=== PATIENT | female | born 1940 | race Caucasian/White ===

== ENCOUNTER 2018-03-08 03:52 | Inpatient (IN) | payer OTHER, MEDICARE ==
[~2018-03-08] VITALS: Ht 154.9 cm; Wt 83.6 kg
[~2018-03-08 03:52] MED LIST: CALCIUM 500 +1 EAC5 PO; CO Q-10400 MG PO; FEMARA2.5 M1 PO; GLUCOSA-CHOND-1 EACH PO; METAMUCIL PACK3.4 GM PO; SYNTHROID25 MCG PO; TYLENOL WITH C1 EACH PO; ZOCOR20 M1 PO
[2018-03-08 14:20] VITALS: BP 120/68
[2018-03-08 14:50] VITALS: BP 104/52
--- NOTE | 2018-03-08 15:18 | PN- Orthopedic ---
Subjective Subjective: POST-OP NOTE: No complaints. Reports pain control significantly better after block done in pacu. Currently tolerating clears. No nausea. Eager to try food. Not yet out of bed. No dizziness. No shortness of breath. No chest pains. Objective Vital Signs and I&Os Vital Signs Date Time Temp Pulse Resp B/P B/P Pulse O2 O2 Flow FiO2 Mean Ox Delivery Rate 03/08 1420 99 Nasal 2.0L Cannula 03/08 1420 97.9 64 20 120/68 99 Nasal 2.0L Cannula Intake & Output 03/08 1600 03/08 0800 03/08 0000 03/07 1600 03/07 0800 03/07 0000 Intake Total Output Total Balance Patient 184 lb Weight Weight Bed scale Measurement Method Physical Exam: General - alert & oriented x 3. comfortable. no acute distress. Lungs - clear bilaterally. no w/r/r. Cardiac - s1s2 Abdomen - soft. nontender. - east draining clear, yellow urine. Extremities - warm bilaterally. no c/c/e. calves soft and nontender b/l. right leg dressing c/d/i. ice pack in place over right knee. on-q in place. nvi. athrombics active b/l. Current Medications: Current Medications Sig/Courtney Start time Last Medication Dose Route Stop Time Status Admin Acetaminophen 650 MG ONCE 03/08 DC PO 03/08 2359 Al Hydroxide/Mg 30 ML Q6P PRN 03/08 144 AC Hydroxide PO Apixaban 2.5 MG BID 03/09 09 AC PO Atorvastatin Calcium 10 MG 1700 03/08 1700 AC PO Celecoxib 400 MG DAILY 03/09 09 AC PO Celecoxib 400 MG ONCE 03/08 DC PO 03/08 235 Dexamethasone 10 MG ONCE 03/08 DC IV 03/08 235 Dextrose/Sodium 1,000 ML Q13H 03/08 1445 AC Chloride IV Docusate Sodium 100 MG DAILY NEEDED PRN 03/08 1445 AC PO Gabapentin 300 MG ONCE 03/08 DC PO 03/08 235 Letrozole 2.5 MG DAILY 03/09 09 AC PO Levothyroxine Sodium 0.025 MG DAILY AC 03/09 0700 AC PO Morphine Sulfate 2 MG Q3P PRN 03/08 1445 AC IV Morphine Sulfate 4 MG Q3P PRN 03/08 1445 AC IV Ondansetron HCl 4 MG Q6P PRN 03/08 1445 AC IV Oxycodone HCl 10 MG ONCE 03/08 0000 DC PO 03/08 2359 Oxycodone/ 1 TAB Q4P PRN 03/08 1445 AC Acetaminophen PO Oxycodone/ 2 TAB Q4P PRN 03/08 1445 AC Acetaminophen PO Polyethylene Glycol 17 GM DAILY NEEDED PRN 03/08 1445 AC PO Ropivacaine 500 ML ONCE ONE 03/08 1015 DC ON-Q Ball 1 BAG INJ 03/08 1016 Scopolamine HBr 1 PAT ONCE 03/08 0000 DC TOP 03/08 2359 Senna/Docusate Sodium 2 TAB AT BEDTIME NEED.. 03/08 1445 AC PO Vancomycin HCl 1,000 MG ONCE ONE 03/08 2200 AC Dextrose/Water 250 ML IV 03/08 2259 Vancomycin HCl 1,000 MG ONCE 03/08 0000 DC Dextrose/Water 250 ML IV 03/08 2359 Assessment/Plan Assessment/Plan This 77 year old female with hx breast cancer, hypothryoidism, hyperlipidemia, constipation, is POD#0 s/p right total knee replacement for primary osteoarthritis advance diet as tolerated pain control as ordered colace bid / miralax prn eliquis bid - dvt ppx celebrex jean-op vanco PT eval d/c east in am f/u am labs home meds ordered dressing change and removal of On-q POD#2 STR planning, bishop macdonald is her goal will d/w Core Measures Venous Thromboembolism VTE Risk Factors Surgery No Mechanical VTE Prophylaxis d/t N/A MechProphylax Ordered No VTE Pharm Prophylaxis d/t NA PharmProphylax ordered
[2018-03-08 16:20] VITALS: BP 115/78
[2018-03-08 18:30] VITALS: BP 110/68
--- NOTE | 2018-03-08 19:16 | Admission Core Measures ---
Acute Coronary Syndrome (CM) ACS Core Measures Acute Coronary Syndrome Diagnosis No Congestive Heart Failure (NEW) CHF Core Measures Congestive Heart Failure Diagnosis No Cerebrovascular Accident (NEW) CVA Core Measures CVA/TIA Diagnosis No Venous Thromboembolism VTE Core Harriett (View Protocol) VTE Risk Factors Surgery No Mechanical VTE Prophylaxis d/t N/A MechProphylax Ordered No VTE Pharm Prophylaxis d/t NA PharmProphylax ordered Problem List As ranked by this Provider includes Assessment & Plan 1. Primary osteoarthritis of right knee HOME MEDS Home Med List Calcium Carbonate/Vitamin D3 (Calcium 500 + D Tablet) 500 MG-400 TABLET 1 TAB PO BID SUPPLEMENT (Reported) Letrozole (Femara) 2.5 MG TABLET 1 TAB PO DAILY BREAST CANCER (Reported) Levothyroxine Sodium (Synthroid) 25 MCG TABLET 1 TAB PO DAILY HORMONE ( Reported)
--- NOTE | 2018-03-08 19:17 | Patient Discharge Instructions ---
Discharge Instructions General Discharge Information You were seen/treated for: Primary osteoarthritis right knee You had these procedures: Right total knee replacement Watch for these problems: Increasing pain despite the use of pain medication Increasing redness, warmth or swelling Drainage of any type from incision Inability to bear weight on operative leg Persistent nausea and vomiting Fever greater than 101.5 degrees Other wound care: Please keep wound clean and dry. No ointments or lotions of any type on or near incision. Your dressing will be changed by your nurse on the second day after your surgery. Daily dry dressing changes are recommended each day thereafter. You may shower 48hr after surgery. Do not soak your wound- no tub baths or swimming. Diet Continue normal diet: Yes Activity Activity Limited to: Weight bear as tolerated Additional ACTIVITY Info: Use assistive devices as needed Acute Coronary Syndrome Inclusion Criteria At DC or during hospital stay patient has or had the following: ACS DIAGNOSIS No Discharge Core Measures Meds if any: Prescribed or Continued at Discharge Meds if any: NOT Prescribed or Continued at Discharge Congestive Heart Failure Inclusion Criteria At DC or during hospital stay patient has or had the following: CHF DIAGNOSIS No Discharge Core Measures Meds if any: Prescribed or Continued at Discharge Meds if any: NOT Prescribed or Continued at Discharge Cerebrovascular accident Inclusion Criteria At DC or during hospital stay patient has or had the following: CVA/TIA Diagnosis No Discharge Core Measures Meds if any: Prescribed or Continued at Discharge Meds if any: NOT Prescribed or Continued at Discharge Venous thromboembolism Inclusion Criteria VTE Diagnosis No VTE Type NONE VTE Confirmed by (Test) NONE Discharge Core Measures - Per Current guidelines, there needs to be overlap - treatment for the first 5 days of Warfarin therapy. - If discharged on Warfarin prior to 5 days of - overlap therapy, the patient will need to be - assessed for post discharge needs including - *Post discharge parental anticoagulation - *Warfarin and/or parental anticoagulation education - *Follow up date to check INR post discharge At least 5 days overlap therapy as Inpatient No Meds if any: Prescribed or Continued at Discharge Note: Overlap Therapy is Warfarin and Anticoagulant Meds if any: NOT Prescribed or Continued at Discharge
--- NOTE | 2018-03-08 19:20 | Surgical Discharge Summary ---
Visit Information Visit Dates Admission Date: 03/08/18 Discharge Date: 03/11/18 History of Present Illness Chief Complaint: Right knee pain related to osteoarthritis Medical History Blood Transfusion Hx: No Cardiovascular: hyperlipidemia Endocrine: hypothyroidism Cancer(s): breast cancer History of MRSA: No History of VRE: No History of CDIFF: No Isolation History: Standard Surgical History Pertinent Surgical History: sp lumpectomy Psychosocial History Where Do You Live? Home Who Do You Live With? Patient/Self Services at Home: None What is Your Primary Language? Romansh Review of Systems: See H&P Hospital Course Course Attending Physician: Krystle CONNOR,[facility] Primary Care Physician: Blaine CONNOR,[facility] Hospital Course: Patient was admitted to the hospital for an elective total joint replacement. Procedure was tolerated well and patient was transferred to a general surgical floor. Diet was advanced and tolerated. Physical therapy performed evaluation and treatment. At time of hospital discharge, vital signs were stable, neurovascular status was intact, and pain was controlled with the use of oral pain medications. Pt DCed to STR with instructions to FU with Dr Dalton in 2 weeks. Allergies: Coded Allergies: adhesive (BLISTER, 03/08/18) adhesive that contains latex Disposition Summary Disposition Principal Diagnosis: Primary osteoarthritis right knee Additional Diagnosis: Same, status post right total knee replacement Discharge Disposition: SNF Discharge Instructions General Discharge Information Code Status: Full Code Patient's Diet: Regular healthy diet Patient's Activity: WBAT Follow-Up Instructions/Appts: Follow-up in MDs office 2 weeks from surgery. Call to confirm/schedule appointment Medications at Discharge Discharge Medications: Continue taking these medications: Calcium Carbonate/Vitamin D3 (Calcium 500 + D Tablet) 500 MG-400 TABLET 1 Tablet ORAL TWICE DAILY Gluc/Pop-MSM#1/Vit C/Dharmesh/Bor (Tkjnmxr-Dzweo-ZIL Complex Cplt) 375-500 MG TABLET Ubidecarenone (Co Q-10) 400 MG CAPSULE Letrozole (Femara) 2.5 MG TABLET 1 Tablet ORAL DAILY Levothyroxine Sodium (Synthroid) 25 MCG TABLET 1 Tablet ORAL DAILY Psyllium Hydrophylic Muciloid (Metamucil Packet) 3.4 GRAM POWD.PACK Simvastatin (Zocor*) 20 MG TABLET Start taking the following new medications: Oxycodone HCl/Acetaminophen (Percocet 5-325 MG Tablet) 5 MG-325 MG TABLET 1-2 Tablet ORAL EVERY 4-6 HOURS as needed for postop pain Qty = 30 No Refills Celecoxib (Celebrex) 200 MG CAPSULE 2 Capsule ORAL DAILY Qty = 60 No Refills Apixaban (Eliquis) 2.5 MG TABLET 1 Tablet ORAL TWICE DAILY Qty = 84 No Refills
[2018-03-08 20:05] VITALS: BP 117/68
[2018-03-09 00:15] VITALS: BP 101/65
[2018-03-09 04:10] VITALS: BP 96/60
[2018-03-09 08:02] VITALS: BP 118/72
--- NOTE | 2018-03-09 08:35 | PN- Orthopedic ---
See Addendum Subjective Subjective: Reports did not sleep well. She may be interested in trying melatonin or benadryl tonight if offered. Reports pain relatively controlled. Not yet up with PT today. She denies dizziness. No shortness of breath. No chest pains. Tolerating diet. Anticipates discharge to rehab on . Objective Vital Signs and I&Os Vital Signs Date Time Temp Pulse Resp B/P B/P Pulse O2 O2 Flow FiO2 Mean Ox Delivery Rate 03/09 08 97.7 57 20 118/72 94 Room Air 03/09 0410 97.5 65 18 96/60 94 Room Air 03/09 0015 97.8 67 18 101/65 95 Room Air 03/08 2005 97.8 63 18 117/68 99 Room Air 03/08 1830 97.4 64 18 110/68 98 Room Air 03/08 1620 97.4 54 18 115/78 91 Room Air 03/08 1420 99 Nasal 2.0L Cannula 03/08 1420 97.9 64 20 120/68 99 Nasal 2.0L Cannula Intake & Output 03/09 1600 03/09 0800 03/09 0000 03/08 1600 03/08 0800 03/08 0000 Intake Total 1080 1125 Output Total 1600 1500 Balance -520 -375 Intake, IV 600 Intake, Oral 480 1125 Output, Urine 1600 1500 Patient 184 lb Weight Weight Bed scale Measurement Method Physical Exam: General - alert & oriented x 3. comfortable. no acute distress. Lungs - clear bilaterally. no w/r/r. Cardiac - s1s2. Abdomen - soft. nontender. - east draining clear, yellow urine. right leg dressing c/d/i. on q in place. athrombics active b/l. no calf tenderness bilaterally. nvi. Current Medications: Current Medications Sig/Courtney Start time Last Medication Dose Route Stop Time Status Admin Acetaminophen 650 MG ONCE 03/08 0000 DC PO 03/08 235 Al Hydroxide/Mg 30 ML Q6P PRN 03/08 1445 AC Hydroxide PO Apixaban 2.5 MG BID 03/09 0900 AC PO Atorvastatin Calcium 10 MG 1700 03/08 1700 AC 03/08 PO 1635 Celecoxib 400 MG DAILY 03/09 0900 AC PO Celecoxib 400 MG ONCE 03/08 0000 DC PO 03/08 235 Dexamethasone 10 MG ONCE 03/08 0000 DC IV 03/08 2359 Dextrose/Sodium 1,000 ML Q13H 03/08 1445 AC 03/09 Chloride IV 0201 Docusate Sodium 100 MG BID 03/08 2100 AC 03/08 PO 2157 Docusate Sodium 100 MG DAILY NEEDED PRN 03/08 1445 DC PO Fentanyl Citrate 250 MCG .STK-MED ONE 03/08 1057 DC IM 03/08 1058 Fentanyl Citrate 100 MCG .STK-MED ONE 03/08 0929 DC IM 03/08 0930 Gabapentin 300 MG ONCE 03/08 0000 DC PO 03/08 2359 Letrozole 2.5 MG DAILY 03/09 0900 AC PO Levothyroxine Sodium 0.025 MG DAILY AC 03/09 0700 AC 03/09 PO 0519 Midazolam HCl 4 MG .STK-MED ONE 03/08 0929 DC IM 03/08 0930 Morphine Sulfate 2 MG Q3P PRN 03/08 1445 AC IV Morphine Sulfate 4 MG Q3P PRN 03/08 1445 AC IV Morphine Sulfate 10 MG .STK-MED ONE 03/08 0930 DC IV 03/08 0931 Ondansetron HCl 4 MG Q6P PRN 03/08 1445 AC IV Oxycodone HCl 10 MG ONCE 03/08 0000 DC PO 03/08 2359 Oxycodone/ 1 TAB Q4P PRN 03/08 1445 AC Acetaminophen PO Oxycodone/ 2 TAB Q4P PRN 03/08 1445 AC Acetaminophen PO Polyethylene Glycol 17 GM DAILY NEEDED PRN 03/08 1445 AC PO Ropivacaine 500 ML ONCE ONE 03/08 1015 DC ON-Q Ball 1 BAG INJ 03/08 1016 Scopolamine HBr 1 PAT ONCE 03/08 0000 DC TOP 03/08 2359 Senna/Docusate Sodium 2 TAB AT BEDTIME NEED.. 03/08 1445 AC PO Tranexamic Acid 2,000 MG .STK-MED ONE 03/08 0929 DC IV 03/08 0930 Vancomycin HCl 1,000 MG ONCE ONE 03/08 2200 DC 03/08 Dextrose/Water 250 ML IV 03/08 2259 2157 Vancomycin HCl 1,000 MG ONCE 03/08 0000 DC Dextrose/Water 250 ML IV 03/08 2359 Results Last 48 Hours of Labs: Laboratory Tests 03/09 0750 Chemistry Sodium Pending Potassium Pending Chloride Pending Carbon Dioxide Pending Anion Gap Pending BUN Pending Creatinine Pending BUN/Creatinine Ratio Pending Hematology CBC w Diff Pending WBC Pending RBC Pending Hgb Pending Hct Pending MCV Pending MCH Pending MCHC Pending RDW Pending Plt Count Pending MPV Pending Assessment/Plan Assessment/Plan This 77 year old female with hx breast cancer, hypothryoidism, hyperlipidemia, constipation, is POD#1 s/p right total knee replacement for primary osteoarthritis tolerating diet. d/c iv fluids pain controlled colace bid / miralax prn eliquis bid - dvt ppx celebrex jean-op vanco complete PT eval d/c east f/u labs home meds ordered dressing change and removal of On-q POD#2 STR planning, [facility] macd[facility] is her goal will d/w Core Measures Venous Thromboembolism VTE Risk Factors Surgery No Mechanical VTE Prophylaxis d/t N/A MechProphylax Ordered No VTE Pharm Prophylaxis d/t NA PharmProphylax ordered
[2018-03-09 09:04] LABS: ABSOLUTE BASOPHIL COUNT 0 /CUMM (0.0-0.2); ABSOLUTE EOSINOPHIL COUNT 0 /CUMM (0.0-0.7); ABSOLUTE MONOCYTE COUNT 0.9 /CUMM (0.10-0.60); BASOPHIL % 0 % (0.0-2.0); EOSINOPHIL % 0 % (0-5); HEMATOCRIT 31.3 % (37-47); MEAN CORPUSCULAR HGB 30.1 PG (27.0-31.0); MEAN CORPUSCULAR HGB CONC 33.7 G/DL (33.0-37.0); MEAN CORPUSCULAR VOLUME 89.5 FL (81.0-99.0); MEAN PLATELET VOLUME 9.2 FL (7.4-10.4); PLATELET COUNT 161 /CUMM (130-400)
[2018-03-09 12:26] VITALS: BP 110/70
[2018-03-09 16:10] VITALS: BP 108/64
--- NOTE | 2018-03-09 19:31 | Operative Report ---
Operative/Inv Procedure Report Surgery Date: 03/08/18 Name of Procedure: Right total knee arthroplasty Pre-Operative Diagnosis: Primary right knee osteoarthritis Post-Operative Diagnosis: Same Estimated Blood Loss: less than 50ml Surgeon/Applications Trainer: Krystle CONNOR,Roman Wesley Anesthesia: general endotracheal tube Implants: [place] triathlon total knee system-size 3 femur, size 3 tibia, 9 mm cruciate retaining polyethylene, 27 patella Drains: None Specimens: Femoral, tibial, patellar bone, meniscal remnants Microbiology: Urine Tourniquet: 56 minutes Complications: None Condition: Stable Operative Indication: Patient is a 77-year-old woman who has a long history of bilateral knee pain. Symptoms are aggravated with activity and activity of daily living compromised by her right knee pain. She underwent previous treatment for knee with only short-term relief. She was evaluated in our office and wanted to proceed with total knee arthroplasty. Risks, benefits and expectations were discussed which included but were not limited to persistent knee pain, need for subsequent surgery, infection, stiffness, injury to blood vessel or nerve, DVT anesthesia risks. She wished to proceed with total knee arthroplasty. Preoperatively patient had a 15 flexion contracture and this would need to be addressed during the case Operative/Procedure Note Note: Patient was brought to the operating room and transferred to the operating table. Once under appropriate anesthesia the right lower extremity was prepped and draped in standard fashion. There was an attempt to have a spinal anesthesia done but it was not successful and therefore patient went under general anesthesia. Right lower extremity was elevated exsanguinated and tourniquet was inflated at 300 mL was a pressure. A standard anterior shins was made for anticipated medial parapatellar approach to the knee. The incision was taken down sharply to the underlying retinaculum. A medial retinacular approach was minimal extension into the quadriceps tendon was done. Moderate knee effusion was evacuated. Remnants of the anterior and medial and lateral meniscal tissues were excised. Remnants of the ACL was excised. Osteophytes were removed. The knee was flexed and the patella was subluxed exposing the distal femur. A drill was used for the intramedullary guide for the distal femoral cut. Because of her valgus alignment and flexion contracture, 5 cut was chosen with a 10 mm thickness of the distal femur removed. The femur was incised was size 3. Size 3 cutting block was pinned in place and then the cuts were made. The anterior chamfer bone was set aside for later use as a femoral canal plug. I was satisfied with the preparation of femur. I then turned my attention to the tibia. The external tibial alignment guide was used to pin the cutting block in a neutral position from medial to lateral and reproducing patient's posterior slow-paced on preoperative templating and intraoperative findings. The cut was made while protecting the soft tissues medial lateral and posterior retractors. The PCL was recessed for balance purposes. The cut was made the bone was removed. The tibia was incised to a size 3. I use a curved osteotome to remove any posterior osteophytes and also to release the posterior capsule due to patient's flexion contracture preoperatively. I then did a trial with a size 3 tibia size 3 femur and a 9 mm poly-patella. I then took the knee out to full extension and prepared the patella. The patella was measured and the appropriate thickness was removed and then replaced with a size 27 patella. The 3 lug holes were drilled. I took the knee through range of motion. Patient did have a tendency to ride laterally in this would be later checked after the tourniquet was deflated to determine if she needed a lateral release. I then removed all trial components after marking my rotation of the tibia and drilling the 2 lug holes for the femur. I finished preparation of the tibia with the appropriate sized tibial punch with the appropriate rotation. Instruments were removed from the knee. The femoral intramedullary hole was plugged with the anterior chamfer bone to minimize postoperative hemarthrosis and swelling Copious irrigation was started. Cement was being mixed on the back table. Once the cement was ready was applied to the dry clean bony surfaces of the tibia. The definitive size 3 tibial component was impacted in place with excess cement being removed with curettes. Cement was applied to the dry clean bony surfaces of the distal femur and the size 3 femoral component was impacted in place and excess cement was removed with curettes. The appropriate polyethylene was inserted and the knee was taken out to full extension. Cement was applied to the dry clean bony surfaces of the patella and the size 27 patella was impacted in place and excess cement was removed with knife. The knee was left in extension as the cement was hardening. I did appear articular pericapsular injection of a cocktail which included ropivacaine with epinephrine and Toradol for postoperative pain and inflammation management. Once the cement was hardening took the knee through range of motion. I was satisfied with the 9 mm cruciate retaining polyethylene. Soft tissue balancing medial laterally and posteriorly. I then removed the trial component. Copious irrigation of the tibial tray followed. I made sure there was no further soft tissue, soft tissue or bony/cement fragments within the tibial tray. I then impacted the definitive size 9 mm cruciate retaining polyethylene to place. The locking mechanism was confirmed. Copious irrigation followed tourniquet was deflated. At that point it was apparent the patient would need a lateral release. This was completed to maximize patellofemoral tracking. I was satisfied with the tracking after the release was completed. Hemostasis was obtained.. Every level of closure was followed by copious irrigation. The medial retinacular approach was closed with interrupted #1 Vicryl sutures. Subcutaneous tissues closed in 2 layers with 2-0 Vicryl and skin was closed with a running 3-0 Vicryl suture with the knee in flexion. Appropriate dressings were applied and patient was awakened and taken the recovery room in good condition. No intraoperative complications Discharge Disposition: PACU
[2018-03-09 22:26] VITALS: BP 124/76
[2018-03-10 06:22] VITALS: BP 138/82
--- NOTE | 2018-03-10 08:05 | PN- Orthopedic ---
See Addendum Subjective Subjective: pain overnihgt at knee, no n/v/cp/sob. no other compaints. desires dc to str as she lives alone and has many stairs Objective Vital Signs and I&Os Vital Signs Date Time Temp Pulse Resp B/P B/P Pulse O2 O2 Flow FiO2 Mean Ox Delivery Rate 03/10 0622 98.3 67 20 138/82 95 Room Air 03/09 2226 98.1 79 18 124/76 98 Room Air 03/09 1610 97.6 70 20 108/64 100 Room Air 03/09 1345 Room Air 03/09 1226 97.7 68 18 110/70 99 Room Air Intake & Output 03/10 1600 03/10 0800 03/10 0000 03/09 1600 03/09 0800 03/09 0000 Intake Total 120 7807 511 6898 1125 Output Total 400 2400 1100 1600 1500 Balance -280 -900 -125 -520 -375 Intake, IV 75 600 Intake, Oral 120 1500 969 133 8684 Number 0 Bowel Movements Output, Urine 400 2400 1100 1600 1500 Physical Exam: gen- nad, sitting in chair card-s1s2 pulm-ctab ext- right knee dressed, tony taken down- incision w edema, ttp, cdi. redressed, strong palp dp, gross sensate/motor intact. calves soft nt bl. Assessment/Plan Assessment/Plan A- POD2 sp R TKR, stable with appropriate postop pain P- prn po pain meds oob, ambualte, pt, wbat home meds eliquis bid i&Os ist dc planning will dw attending Core Measures Venous Thromboembolism VTE Risk Factors Surgery No Mechanical VTE Prophylaxis d/t N/A MechProphylax Ordered No VTE Pharm Prophylaxis d/t NA PharmProphylax ordered
[2018-03-10] MEDS ORDERED: PERCOCET 5-3251 EACH PO (10:20)
[2018-03-10] MEDS ORDERED: ELIQUIS2.5 M1 PO (10:20)
[2018-03-10] MEDS ORDERED: CELEBREX200 M1 PO (10:20)
--- NOTE | 2018-03-10 12:27 | RADIOLOGY REPORT ---
EXAMINATION: XR KNEE, RIGHT CLINICAL INFORMATION: Status post right knee replacement. COMPARISON: None TECHNIQUE: Two views of the right knee. FINDINGS: The patient is status post total right hip arthroplasty. Prosthetic components are well-seated the [place] bone and anatomically aligned. Postoperative changes as seen in the overlying soft tissues with mild soft tissue edema and subcutaneous emphysema seen. Moderate suprapatellar knee joint effusion is noted. Diffuse osteopenia is seen. IMPRESSION: 1. Anatomic alignment status post total right knee arthroplasty with no hardware failure or [place] bone fracture seen. 2. Moderate size suprapatellar knee joint effusion. 3. Other cutaneous soft tissue edema and emphysema are consistent with postoperative state.
[2018-03-10 14:33] VITALS: BP 124/80
[2018-03-10 21:48] VITALS: BP 100/64
[2018-03-11 07:09] VITALS: BP 116/58
--- NOTE | 2018-03-11 08:07 | PN- Orthopedic ---
Subjective Subjective: pt in bed, pain well controlled. tolerating PO, voiding, BM last night Deneis paresthesias, CP/SOB, fevers Objective Vital Signs and I&Os Vital Signs Date Time Temp Pulse Resp B/P B/P Pulse O2 O2 Flow FiO2 Mean Ox Delivery Rate 03/11 0709 98.0 72 18 116/58 92 03/10 2148 98.1 88 18 100/64 96 Room Air 03/10 1433 98.5 72 18 124/80 97 Room Air Intake & Output 03/11 1600 03/11 0800 03/11 0000 03/10 1600 03/10 0803/10 0000 Intake Total 420 950 470 047 6960 Output Total 4882 150 7697 Balance 420 950 -640 -280 -900 Intake, IV 10 Intake, Oral 420 950 912 200 8815 Number 3 0 Bowel Movements Output, Urine [phone] Physical Exam: gen- NAD resp-clear cardiac- RRR abd- soft, NT ext- right knee dressing changed, incision clean and try, mild swelling, no drainage or signs of infection. distal sensory and motor function intact. no calf tenderness. Current Medications: Current Medications Sig/Courtney Start time Last Medication Dose Route Stop Time Status Admin Al Hydroxide/Mg 30 ML Q6P PRN 03/08 1445 AC Hydroxide PO Apixaban 2.5 MG BID 03/09 09 AC 03/10 PO 2050 Atorvastatin Calcium 10 MG 1700 03/08 1700 AC 03/10 PO 1812 Celecoxib 400 MG DAILY 03/09 09 AC 03/10 PO 1025 Diphenhydramine HCl 25 MG AT BEDTIME NEED.. 03/09 0845 AC IV Docusate Sodium 100 MG BID 03/08 2100 AC 03/10 PO 1025 Letrozole 2.5 MG DAILY 03/09 09 AC 03/10 PO 1025 Levothyroxine Sodium 0.025 MG DAILY AC 03/09 0700 AC 03/11 PO 0525 Magnesium Hydroxide 30 ML AT BEDTIME 03/10 2100 AC PO Melatonin 5 MG AT BEDTIME NEED.. 03/09 0845 AC PO Morphine Sulfate 2 MG Q3P PRN 03/08 1445 AC IV Morphine Sulfate 4 MG Q3P PRN 03/08 1445 AC IV Ondansetron HCl 4 MG Q6P PRN 03/08 1445 AC IV Oxycodone/ 1 TAB Q4P PRN 03/08 1445 AC Acetaminophen PO Oxycodone/ 2 TAB Q4P PRN 03/08 1445 AC 03/11 Acetaminophen PO 0354 Polyethylene Glycol 17 GM DAILY NEEDED PRN 03/08 1445 AC 03/10 PO 1025 Senna/Docusate Sodium 2 TAB AT BEDTIME NEED.. 03/08 1445 AC 03/10 PO 1025 Assessment/Plan Assessment/Plan A- POD3 sp R TKR, stable with appropriate postop pain P- prn po pain meds oob, ambualte, pt, wbat home meds eliquis bid to cont for 6 weeks ist dc planning- plan to go to [facility] Core Measures Venous Thromboembolism VTE Risk Factors Surgery No Mechanical VTE Prophylaxis d/t N/A MechProphylax Ordered No VTE Pharm Prophylaxis d/t NA PharmProphylax ordered
[2018-03-11 09:05] VITALS: BP 116/58
== END 2018-03-11 11:57 | DRG 470 ==
LOC: SDA 03:52 → 2NB 03:52 → ENRESERV 12:44 → ENTRNSPT 13:47 → EDTRNSPTSTS 14:10 → 2NB 14:20 → CMPTRNSPT 14:48 → ENPENDDIS 03-11 08:16 → ENTRNSPT 03-11 11:42 → EDTRNSPTSTS 03-11 11:48 → EDTRNSPT 03-11 11:48 → CMPTRNSPT 03-11 11:55 → 2NB 03-11 11:57
PROVIDERS: Physician Assistant Surgical
PROC: 0SRC0J9 Replacement of Right Knee Joint with Synthetic Substitute, Cemented, Open Approach (ICD-10-PCS; principal; 2018-03-08)
PROC: 3E0T3BZ Introduction of Anesthetic Agent into Peripheral Nerves and Plexi, Percutaneous Approach (ICD-10-PCS; principal; 2018-03-08)
DX: M17.11 Unilateral primary osteoarthritis, right knee (principal); E03.9 Hypothyroidism, unspecified; E78.5 Hyperlipidemia, unspecified; E66.9 Obesity, unspecified; Z68.34 Body mass index [BMI] 34.0-34.9, adult; M81.0 Age-related osteoporosis without current pathological fracture; Z85.3 Personal history of malignant neoplasm of breast; Z91.040 Latex allergy status
CPT/HCPCS: 2NBSP; 36415; 73560-RT; 82436; 87086; 97110-GO; 97116-GO; 97161-GP; 97530-GO; C1713; J0171; J1100; J1200; J1885; J2795; J3370; J7040; J7042; J7060